=== PATIENT | female | born 2000 | race Caucasian/White ===

== ENCOUNTER 2022-09-06 05:39 | Emergency (ER) | payer OTHER ==
[~2022-09-06] VITALS: Ht 172.7 cm; Wt 50.9 kg
[2022-09-06 05:54] VITALS: BP 122/85; TEMP 98.8
[2022-09-06] MEDS ORDERED: AMOXICILLIN 8751 TAB PO (06:36)
[2022-09-06] MEDS ORDERED: CEPACOL SORE TH1 LO8 MM (06:36)
[2022-09-06 07:00] VITALS: PULSE 101
== END 2022-09-06 07:00 | disposition home or self-care (01) ==
LOC: COL.ER 05:39
DX: J32.9 Chronic sinusitis, unspecified (principal); J02.9 Acute pharyngitis, unspecified; M06.9 Rheumatoid arthritis, unspecified; Z79.899 Other long term (current) drug therapy
CPT/HCPCS: J1885